=== PATIENT | female | born 1970 | race Caucasian/White ===

== ENCOUNTER → 2016-11-16 | Outpatient (CLI) | payer OTHER ==
--- NOTE | 2016-11-17 07:30 | MM ---
Reason for exam: follow-up at short interval from prior study. Last mammogram was performed 8 months ago. History: Family history of breast cancer in maternal grandmother. Physical Findings: Nurse did not find any significant physical abnormalities on exam. MG Diagnostic Mammo LT w CAD CC and MLO view(s) were taken of the left breast. Prior study comparison: March 31, 2016, bilateral MG 3d diag mammo w/cad NELLIE. February 19, 2015, bilateral MG screening mammo w CAD. The breast tissue is extremely dense which could obscure a lesion on mammography. Benign calcifications. There is chronic nodularity in the left breast. There is no dominant lesion. No significant new findings when compared with previous films. These results were verbally communicated with the patient and result sheet given to the patient on 11/16/16. ASSESSMENT: Benign, BI-RAD 2 RECOMMENDATION: Routine screening mammogram of both breasts in 6 months.
== END | disposition home or self-care (01) ==
LOC: RADMAMWWP 15:15
PROVIDERS: ATTEND Obstetrics & Gynecology
DX: R92.8 Other abnormal and inconclusive findings on diagnostic imaging of breast (principal)

== ENCOUNTER → 2017-06-15 | Outpatient (CLI) | payer OTHER ==
--- NOTE | 2017-06-20 10:33 | MM ---
Reason for exam: screening (asymptomatic). Last mammogram was performed 7 months ago. History: Family history of breast cancer in maternal grandmother. Benign excisional biopsy of the right breast, 2012. Physical Findings: A clinical breast exam by your physician is recommended on an annual basis and results should be correlated with mammographic findings. MG Screening Mammo w CAD Bilateral CC and MLO view(s) were taken. Prior study comparison: November 16, 2016, left breast MG diagnostic mammo LT w CAD. March 31, 2016, bilateral MG 3d diag mammo w/cad NELLIE. The breast tissue is heterogeneously dense. This may lower the sensitivity of mammography. No significant changes when compared with prior studies. ASSESSMENT: Negative, BI-RAD 1 RECOMMENDATION: Routine screening mammogram of both breasts in 1 year.
== END | disposition home or self-care (01) ==
LOC: RADMAMWWP 06:56
PROVIDERS: ATTEND Obstetrics & Gynecology
DX: Z12.31 Encounter for screening mammogram for malignant neoplasm of breast (principal); Z80.3 Family history of malignant neoplasm of breast
CPT/HCPCS: 77067

== ENCOUNTER → 2018-02-07 | Outpatient (CLI) | payer OTHER ==
[2018-02-07 16:32] LABS: Basophils # (A) 0.1 k/uL (0-0.2); Basophils % (A) 1 %; Eosinophils # (A) 0.6 k/uL (0-0.7); Eosinophils % (A) 7 %; HCT 42.3 % (34.0-46.0); HGB 14.1 gm/dL (11.4-16.0); Lymphocytes # (A) 2.5 k/uL (1.0-4.8); Lymphocytes % (A) 28 %; MCH 31.2 pg (25.0-35.0); MCHC 33.4 g/dL (31.0-37.0); MCV 93.2 fL (80.0-100.0); Mean Platelet Volume 7.7; Monocytes # (A) 0.7 k/uL (0-1.0); Monocytes % (A) 8 %; Neutrophils # (A) 4.9 k/uL (1.3-7.7); Neutrophils % (A) 53 %; Platelet Count 337 k/uL (150-450); RBC 4.53 m/uL (3.80-5.40); RDW 12.3 % (11.5-15.5); WBC 9.1 k/uL (3.8-10.6)
== END | disposition home or self-care (01) ==
LOC: LABWHC1 15:33
PROVIDERS: ATTEND Nurse Practitioner
DX: J45.909 Unspecified asthma, uncomplicated (principal)
CPT/HCPCS: 36415; 85025

== ENCOUNTER → 2018-04-13 | Outpatient (CLI) | payer OTHER ==
--- NOTE | 2018-04-16 07:29 | MM ---
Reason for exam: clinical finding. Last mammogram was performed 10 months ago. History: Family history of breast cancer in maternal grandmother. Benign excisional biopsy of the right breast, 2012. Indicated problem(s): lump or thickening in the left breast. Physical Findings: Nurse Summary: a 0.5 x 0.5 cm and a 0.5 x 1 cm dominant masses at the 11:00/12:00 o'clock positions, area of patients concern in the left breast. MG 3D Diag Mammo W/Cad LT CC and MLO view(s) were taken of the left breast. Prior study comparison: June 15, 2017, bilateral MG screening mammo w CAD. November 16, 2016, left breast MG diagnostic mammo LT w CAD. The breast tissue is heterogeneously dense. This may lower the sensitivity of mammography. There is a 3 mm round density in the left breast outer lower posterior position. ASSESSMENT: Incomplete: need additional imaging evaluation, BI-RAD 0 RECOMMENDATION: Ultrasound of the left breast.
--- NOTE | 2018-04-16 07:35 | USB ---
History: Family history of breast cancer in maternal grandmother. Benign excisional biopsy of the right breast, 2013. US Breast LT Left complete breast ultrasound includes all four quadrants, the retroareolar region and axilla. Finding demonstrates extremely dense tissue throughout. A 0.7 x 0.4 x 0.6 cm oval well circumscribed cystic lesion stable from 2015 ultrasound, at area of concern nothing is noted. These results were verbally communicated with the patient and result sheet given to the patient on 04/13/18. ASSESSMENT: Benign, BI-RAD 2 RECOMMENDATION: Return to routine screening mammogram schedule for both breasts. Patient is due June 2018 for back on schedule screening mammogram bilateral.
== END | disposition home or self-care (01) ==
LOC: RADMAMWWP 09:55
PROVIDERS: ATTEND Family Medicine
DX: N63.0 Unspecified lump in unspecified breast (principal)
CPT/HCPCS: 77061; 77065

== ENCOUNTER → 2018-06-28 | Outpatient (CLI) | payer OTHER ==
--- NOTE | 2018-06-29 10:12 | MM ---
Reason for exam: screening (asymptomatic). Last mammogram was performed 3 months ago. History: Family history of breast cancer in maternal grandmother. Benign excisional biopsy of the right breast, 2012. Physical Findings: A clinical breast exam by your physician is recommended on an annual basis and results should be correlated with mammographic findings. MG 3D Screening Mammo W/Cad Bilateral CC and MLO view(s) were taken. Prior study comparison: April 13, 2018, left breast MG 3d diag mammo w/cad LT. June 15, 2017, bilateral MG screening mammo w CAD. The breast tissue is heterogeneously dense. This may lower the sensitivity of mammography. There is chronic nodularity bilaterally. There is no discrete abnormality. No significant changes when compared with prior studies. ASSESSMENT: Benign, BI-RAD 2 RECOMMENDATION: Routine screening mammogram of both breasts in 1 year.
== END | disposition home or self-care (01) ==
LOC: RADMAMWWP 07:49
PROVIDERS: ATTEND Obstetrics & Gynecology
DX: Z12.31 Encounter for screening mammogram for malignant neoplasm of breast (principal); Z80.3 Family history of malignant neoplasm of breast
CPT/HCPCS: 77063; 77067

== ENCOUNTER → 2019-10-29 | Outpatient (CLI) | payer OTHER | LOC: LABWHC1 09:46 | PROVIDERS: ATTEND Family Medicine | DX: Z20.828 Contact with and (suspected) exposure to other viral communicable diseases (principal) | CPT/HCPCS: U0003; C9803 ==

== ENCOUNTER → 2020-07-08 | Outpatient (CLI) | payer OTHER ==
--- NOTE | 2020-07-09 09:24 | MM ---
Reason for exam: screening (asymptomatic). Last mammogram was performed 2 years ago. History: Family history of breast cancer in maternal grandmother. Benign excisional biopsy of the right breast, 2012. Physical Findings: A clinical breast exam by your physician is recommended on an annual basis and results should be correlated with mammographic findings. MG 3D Screening Mammo W/Cad Bilateral CC and MLO view(s) were taken. Prior study comparison: June 28, 2018, bilateral MG 3d screening mammo w/cad. April 13, 2018, left breast MG 3d diag mammo w/cad LT. The breast tissue is extremely dense which could obscure a lesion on mammography. There is chronic nodularity bilaterally. There is no dominant lesion. No significant changes when compared with prior studies. ASSESSMENT: Benign, BI-RAD 2 RECOMMENDATION: Routine screening mammogram of both breasts in 1 year.
== END | disposition home or self-care (01) ==
LOC: RADMAMWWP 10:17
PROVIDERS: ATTEND Obstetrics & Gynecology
DX: Z12.31 Encounter for screening mammogram for malignant neoplasm of breast (principal); Z80.3 Family history of malignant neoplasm of breast
CPT/HCPCS: 77063; 77067

== ENCOUNTER 2021-11-24 08:27 | Day surgery (SDC) | payer MEDICAID ==
[2021-11-23 08:57] VITALS: BMI 25.5
[~2021-11-24 08:27] MED LIST: LACTATED RINGERS 1,000 ML IV SCH
[2021-11-24 09:10] VITALS: TEMP 96.7
[2021-11-24] MEDS ORDERED: PROPOFOL 10 MG/ML 20 ML VIAL IV ONE (09:36)
--- NOTE | 2021-11-24 09:56 | P.PCN ---
Date of Procedure: 11/24/21 Procedure(s) Performed: BRIEF HISTORY: Patient is a 51-year-old pleasant white female scheduled for an elective colonoscopy as a part of screening for colorectal neoplasia. PROCEDURE PERFORMED: Colonoscopy. PREOPERATIVE DIAGNOSIS: Screening for colon cancer. IV sedation per Anesthesia. PROCEDURE: After informed consent was obtained, the patient, was brought into the endoscopy unit. IV sedation was administered by Anesthesia under continuous monitoring. Digital rectal examination was normal. Initially the Olympus CF-160 flexible video colonoscope was then inserted in the rectum, gradually advanced into the cecum without any difficulty. Careful examination was performed as the scope was gradually being withdrawn. Ileocecal valve and the appendiceal orifice were visualized and appeared normal. Prep was excellent. Mucosa of the cecum, ascending colon, transverse colon, descending colon, sigmoid colon, and rectum appeared normal. Scattered sigmoid diverticulosis Retroflexion was performed in the rectum and no lesions were seen. The patient tolerated the procedure well. IMPRESSION: Normal-appearing colon from rectum to cecum with no evidence of colorectal neoplasia . Scattered sigmoid diverticulosis. RECOMMENDATIONS: Findings of this examination were discussed with the patient a s her family. She was advised to have a repeat screening colonoscopy in 10 years.
[2021-11-24 10:04] VITALS: RESP 16
[2021-11-24 10:17] VITALS: BP 116/70; PULSE 75
== END 2021-11-24 10:30 | disposition home or self-care (01) ==
LOC: ORWHC2ENDO 08:27
PROVIDERS: ATTEND Internal Medicine Gastroenterology
DX: Z12.11 Encounter for screening for malignant neoplasm of colon (principal); K57.30 Diverticulosis of large intestine without perforation or abscess without bleeding; Z79.890 Hormone replacement therapy; Z79.899 Other long term (current) drug therapy
CPT/HCPCS: 45378; 81025; J2704

== ENCOUNTER → 2022-03-12 | Outpatient (CLI) | payer MEDICAID ==
--- NOTE | 2022-03-12 15:37 | CT ---
EXAMINATION TYPE: CT chest wo con DATE OF EXAM: 03/12/2022 COMPARISON: 03/04/2015 HISTORY: cough, SOB. hx of asthma and covid. CT DLP: 180.2 mGycm. Automated Exposure Control for Dose Reduction was Utilized. TECHNIQUE: CT scan of the thorax is performed without IV contrast. FINDINGS: LUNGS: The lungs are grossly clear, there is no concerning parenchymal mass or nodule identified. T here is no pleural effusion or pneumothorax seen. The tracheobronchial tree is patent. There are 2 m m subpleural nodules posteriorly within the bilateral lower lobe MEDIASTINUM: Lack of IV contrast is noted to limit evaluation for mediastinal and especially hilar ad enopathy. There are no definitive greater than 1 cm hilar or mediastinal lymph nodes. No cardiomega ly or pericardial effusion is seen. Aorta normal caliber. OTHER: No additional significant abnormality is seen. IMPRESSION: 1. No acute intrathoracic process. 2. There are 2 mm subpleural nodules posterior bilateral lower lobes which have a benign appearance. 12 month follow-up could be obtained to confirm stability.
== END | disposition home or self-care (01) ==
LOC: RADCTMAIN 14:38
PROVIDERS: ATTEND Internal Medicine Pulmonary Disease
DX: U09.9 Post COVID-19 condition, unspecified (principal); R91.8 Other nonspecific abnormal finding of lung field; J45.51 Severe persistent asthma with (acute) exacerbation
CPT/HCPCS: 71250

== ENCOUNTER → 2022-07-12 | Outpatient (CLI) | payer MEDICAID ==
--- NOTE | 2022-07-13 11:51 | MM ---
Reason for Exam: Screening (asymptomatic). Last screening mammogram was performed 12 month(s) ago. Patient History: Menarche at age 16. First Full-Term at age 17. Postmenopausal. 2012, Benign Excisional Biopsy on the right side. Maternal grandmother had breast cancer. Risk Values: Zeinab 5 year model risk: 0.8%. NCI Lifetime model risk: 6.9%. Prior Study Comparison: 06/28/2018 Bilateral Screening Mammogram, [facility]. 07/08/2020 Bilateral Screening Mammogram, [facility]. 07/09/2021 Bilateral Screening Mammogram, [facility]. Tissue Density: The breast tissue is heterogeneously dense. This may lower the sensitivity of mammography. Findings: Analyzed By CAD. There is no suspicious group of microcalcifications or new suspicious mass in either breast. Overall Assessment: Negative, BI-RAD 1 Management: Screening Mammogram of both breasts in 1 year. A clinical breast exam by your physician is recommended on an annual basis and results should be correlated with mammographic findings. [facility] will attempt to contact patient to return for supplemental views and ultrasound if indicated. Electronically signed and approved by: Lukasz Angela DO
== END | disposition home or self-care (01) ==
LOC: RADMAMWWP 11:09
PROVIDERS: ATTEND Obstetrics & Gynecology
DX: Z12.31 Encounter for screening mammogram for malignant neoplasm of breast (principal); Z78.0 Asymptomatic menopausal state; Z80.3 Family history of malignant neoplasm of breast
CPT/HCPCS: 77063; 77067

== ENCOUNTER → 2023-04-29 | Outpatient (CLI) | payer MEDICAID ==
--- NOTE | 2023-04-29 13:06 | CT ---
EXAMINATION TYPE: CT chest wo con DATE OF EXAM: 04/29/2023 COMPARISON: 03/12/2022 HISTORY: asthma CT DLP: 504 mGycm. Automated Exposure Control for Dose Reduction was Utilized. TECHNIQUE: CT scan of the thorax is performed without IV contrast. FINDINGS: There is no suspicious lung mass or nodule. There is no abnormal airspace/consolidative density or abnormal interstitial density. There is no pleural effusion or pneumothorax. The great vessels chest are normal and is no mediastinal, hilar or axillary adenopathy. Scanning through the upper abdomen reveals cholelithiasis but no other significant abnormality. There are no focal osseous lesions. IMPRESSION: 1. No suspicious lung mass or nodule. 2. No acute cardiopulmonary disease. 3. Cholelithiasis.
== END | disposition home or self-care (01) ==
LOC: RADCTMAIN 11:00
PROVIDERS: ATTEND Internal Medicine Pulmonary Disease
DX: K80.20 Calculus of gallbladder without cholecystitis without obstruction (principal); J82.83 Eosinophilic asthma; J45.50 Severe persistent asthma, uncomplicated; U09.9 Post COVID-19 condition, unspecified
CPT/HCPCS: 71250

== ENCOUNTER → 2023-07-14 | Outpatient (CLI) | payer MEDICAID ==
--- NOTE | 2023-07-15 14:13 | MM ---
Reason for Exam: Screening (asymptomatic). Last screening mammogram was performed 12 month(s) ago. Patient History: Menarche at age 16. First Full-Term at age 17. Postmenopausal. 2012, Benign Excisional Biopsy on the right side. Maternal grandmother had breast cancer, age 70. Risk Values: Zeinab 5 year model risk: 0.8%. NCI Lifetime model risk: 6.8%. Prior Study Comparison: 07/08/2020 Bilateral Screening Mammogram, [facility]. 07/09/2021 Bilateral Screening Mammogram, [facility]. 07/12/2022 Bilateral MG 3D screening mammo w/cad, [facility]. Tissue Density: The breasts are heterogeneously dense, which may obscure small masses. Findings: Analyzed By CAD. There is no suspicious group of microcalcifications or new suspicious mass in either breast. Overall Assessment: Benign, BI-RAD 2 Management: Screening Mammogram of both breasts in 1 year. . Patient should continue monthly self-breast exams. A clinical breast exam by your physician is recommended on an annual basis. This exam should not preclude additional follow-up of suspicious palpable abnormalities. Note on Zeinab scores and lifetime risk: 1. A Zeinab score greater than 3% is considered moderate risk. If this is the case, consider specialist referral to assess eligibility for a risk reducing agent. 2. If overall lifetime risk for the development of breast cancer is 20% or higher, the patient may qualify for future screening with alternating mammogram and breast MRI. Electronically signed and approved by: Jh Mauricio M.D. Radiolog[facility]
== END | disposition home or self-care (01) ==
LOC: RADMAMWWP 08:02
PROVIDERS: ATTEND Obstetrics & Gynecology
DX: Z12.31 Encounter for screening mammogram for malignant neoplasm of breast (principal); Z78.0 Asymptomatic menopausal state; Z80.3 Family history of malignant neoplasm of breast
CPT/HCPCS: 77063; 77067